=== PATIENT | female | born 1950 | race Caucasian/White ===

== ENCOUNTER → 2021-06-10 | Outpatient (CLI) | payer MEDICARE ==
--- NOTE | 2021-06-10 16:16 | KCIC ---
EXAMINATION: MRI RIGHT LOWER EXTREMITY JOINT WITHOUT INDICATIONS: Neuroma. TECHNIQUE: Multiplanar multisequence MRI of the right forefoot was obtained without contrast. COMPARISON: None. FINDINGS: BONES AND CARTILAGE: No acute fracture. Marrow signal is normal. Large cysts in the proximal aspect of the cuboid are likely degenerative although the calcaneal cuboid joint is incompletely imaged. LIGAMENTS: Lisfranc ligament is intact. TENDONS: Distal flexor and extensor tendons are intact. OTHER:Trace fluid in the intermetatarsal spaces but no definite neuroma. There is subcutaneous edema at the plantar aspect of the second metatarsal head. Muscles are unremarkable. IMPRESSION: 1. No definite neuroma identified. Trace fluid in the first through third intermetatarsal spaces. 2. Subcutaneous edema at the plantar aspect of the second metatarsal head. 3. Cystic changes in the cuboid, likely related to degenerative joint disease although the calcaneocu boid joint is incompletely imaged. Electronically signed by: Viji Curry MD (06/10/2021 4:14 PM) [id number]
== END ==
LOC: KCIC MRI 10:30
PROVIDERS: ATTEND Podiatrist Foot & Ankle Surgery
DX: D36.13 Benign neoplasm of peripheral nerves and autonomic nervous system of lower limb, including hip (principal)
CPT/HCPCS: 73721